=== PATIENT | female | born 1965 | race American Indian/Alaskan Native ===

== ENCOUNTER 2017-09-30 06:13 | Day surgery (SDC) | payer BC ==
[2017-09-22 08:23] VITALS: BMI 55.5
[2017-09-30] MEDS ORDERED: Propofol 10 mg/ml Inj (20 ML) ONE ×2 (08:14→08:41)
[2017-09-30] MEDS ORDERED: Lidocaine PF 2% (5 ml) Inj (For Cardiac Arrhy) ONE (08:14)
[2017-09-30] MEDS ORDERED: Sodium Chloride 0.9% 1,000 ML IV SCH (09:00)
[2017-09-30 10:16] VITALS: BP 135/90; PULSE 83; RESP 16; TEMP 98.3; O2SAT 98
--- NOTE | 2017-09-30 17:35 | CARD ---
APPROVED REPORT Date of service: 09/30/2017 EKG Measurement Heart [id number] <Conclusion> Normal sinus rhythm Possible Left atrial enlargement Borderline ECG
== END 2017-09-30 10:50 | disposition home or self-care (01) ==
LOC: ENDO 06:13
PROVIDERS: ATTEND Internal Medicine Gastroenterology
DX: Z12.11 Encounter for screening for malignant neoplasm of colon (principal); K29.51 Unspecified chronic gastritis with bleeding; K57.30 Diverticulosis of large intestine without perforation or abscess without bleeding; K64.1 Second degree hemorrhoids; K21.0 Gastro-esophageal reflux disease with esophagitis; R13.10 Dysphagia, unspecified; E78.00 Pure hypercholesterolemia, unspecified; E11.9 Type 2 diabetes mellitus without complications; J45.909 Unspecified asthma, uncomplicated; E56.9 Vitamin deficiency, unspecified; Z87.891 Personal history of nicotine dependence
CPT/HCPCS: 43239; 45378; 82948; 84703; 88305; 88312; 88342; 93005; J2704; J7030; J7040